=== PATIENT | female | born 1985 | race Caucasian/White ===

== ENCOUNTER 2024-02-16 10:27 | Emergency (ER) | payer BC ==
[2024-02-16 10:58] VITALS: BP 117/76; PULSE 87
== END 2024-02-16 11:45 | disposition home or self-care (01) ==
LOC: FB.ED 10:27
DX: S90.02XA Contusion of left ankle, initial encounter (principal); Z79.899 Other long term (current) drug therapy; X50.1XXA Overexertion from prolonged static or awkward postures, initial encounter; Y93.41 Activity, dancing
CPT/HCPCS: 73610-LT; 99283